=== PATIENT | female | born 1995 | race Caucasian/White ===

== ENCOUNTER 2020-07-01 15:53 | Emergency (ER) | payer SELFPAY ==
[2020-07-01 16:16] LABS: Bilirubin Small (Negative); Blood, Urine Trace (Negative); Clarity Slightly Cloudy (Clear); Glucose, Urine (Dipstick) Negative (Negative); Ketone, Urine Trace mg/dL (Negative); Leukocyte Negative (Negative); Nitrite Positive (Negative); Protein, Urine (Dipstick) Trace mg/dL (Neg-Trace); Specific Gravity, Urine 1.025 (1.005-1.030)
[2020-07-01 16:21] LABS: Bacteria/HPF 2+ HPF (None Seen); RBC/HPF 0-3 HPF (0-3); Squamous Epithelial 0-3 HPF (0-3); WBC/HPF 0-3 HPF (0-3)
[2020-07-01 16:22] LABS: Mucous/LPF 2+ LPF (<2+)
== END 2020-07-01 16:35 | disposition home or self-care (01) ==
LOC: BURERS 15:53
DX: L23.7 Allergic contact dermatitis due to plants, except food (principal); N39.0 Urinary tract infection, site not specified; F41.9 Anxiety disorder, unspecified; F31.9 Bipolar disorder, unspecified; F17.290 Nicotine dependence, other tobacco product, uncomplicated
CPT/HCPCS: 81003; 81015; 87086; 99283